=== PATIENT | male | born 1960 | race Caucasian/White ===

== ENCOUNTER 2016-08-20 11:14 | Emergency (ER) | payer OTHER ==
[2016-08-20 11:58] LABS: BASOPHIL 0.2 % (0-2); EOSINOPHIL 1.2 % (0-5); HCT 33.3 % (42.0-52.0); HGB 11.3 g/dl (13.2-18.0); LYMPHOCYTE 9.3 % (15-48); MCH 30.9 pg (25.0-31.0); MCHC 33.9 g/dL (32.0-36.0); MONOCYTE 11.9 % (0-12); MPV 8.5 fL (6.0-9.5); NEUTROPHIL 77.4 % (41-80); PLT 462 K/uL (150-400); RBC 3.66 M/uL (4.70-6.00); WBC 14.7 K/uL (4.0-10.5)
[2016-08-20 12:15] LABS: POTASSIUM 3.6 mmol/L (3.5-5.1)
[2016-08-20 12:28] LABS: ALBUMIN 3.8 g/dL (3.5-5.0); BILIRUBIN - TOTAL 0.6 mg/dL (0.1-1.0); GLOBULIN (CALCULATION) 2.4 g/dL (2.2-4.2); TOTAL PROTEIN 6.2 g/dL (6.4-8.3)
== END 2016-08-20 13:42 | disposition home or self-care (01) ==
LOC: FER 11:14
PROVIDERS: Nurse Practitioner
DX: R22.42 Localized swelling, mass and lump, left lower limb (principal); M25.572 Pain in left ankle and joints of left foot; M79.662 Pain in left lower leg; Z88.1 Allergy status to other antibiotic agents; Z88.8 Allergy status to other drugs, medicaments and biological substances
CPT/HCPCS: 36415; 80053; 85025; 93005

== ENCOUNTER 2020-11-18 19:00 | Emergency (ER) | payer OTHER ==
[~2020-11-18 19:00] MED LIST: BROMFED DM COU473 ML PO; CANDESARTAN-HC1 EAC1 PO; TAMIFLU 75MG CA75 MG PO; VENTOLIN HFA IN18 GM INH; VIBRAMYCIN100 MG PO
[2020-11-19 03:34] LABS: BASOPHIL 0.9 % (0-2); EOSINOPHIL 4.2 % (0-5); HCT 39.4 % (42.0-52.0); HGB 12.8 g/dl (13.2-18.0); LYMPHOCYTE 34.5 % (15-48); MCH 30.8 pg (25.0-31.0); MCHC 32.5 g/dL (32.0-36.0); MCV 94.7 fL (78.0-100.0); MONOCYTE 12.7 % (0-12); MPV 9.8 fL (6.0-9.5); NEUTROPHIL 47.1 % (41-80); NRBC 0; PLT 509 K/uL (150-400); RBC 4.16 M/uL (4.70-6.00); RDW 12.5 % (11.5-14.0); WBC 6.7 K/uL (4.0-10.5)
[2020-11-19 03:43] LABS: ALBUMIN 3.2 g/dL (3.4-5.0); BILIRUBIN - TOTAL 0.2 mg/dL (0.2-1.0); BUN/CREAT RATIO (CALC) 15.8 RATIO; CREATININE 1.33 mg/dL (0.67-1.17); GLOBULIN (CALCULATION) 4.1 g/dL; POTASSIUM 3.8 mmol/L (3.5-5.1); TOTAL PROTEIN 7.3 g/dL (6.4-8.2)
[2020-11-19] MEDS ORDERED: CANDESARTAN-HC1 EAC1 PO (05:17)
[2020-11-19] MEDS ORDERED: LASIX20 MG PO (05:17)
[2020-11-19] MEDS ORDERED: K-DUR20 MEQ PO (05:17)
== END 2020-11-19 05:35 | disposition home or self-care (01) ==
LOC: FER 19:00
PROVIDERS: Emergency Medicine Emergency Medical Services
DX: M79.662 Pain in left lower leg (principal); M79.661 Pain in right lower leg; R60.0 Localized edema; M79.671 Pain in right foot; M79.672 Pain in left foot; M25.571 Pain in right ankle and joints of right foot; M25.572 Pain in left ankle and joints of left foot; M79.89 Other specified soft tissue disorders; M25.472 Effusion, left ankle; M25.471 Effusion, right ankle; I10 Essential (primary) hypertension; Z91.14 Patient's other noncompliance with medication regimen; Z98.890 Other specified postprocedural states; Z79.899 Other long term (current) drug therapy
CPT/HCPCS: 36415; 71045; 80053; 84484; 85025; 93005; J1885; J1940